=== PATIENT | female | born 1975 | race African-American/Black ===

== ENCOUNTER 2017-11-25 07:55 | Emergency (ER) | payer OTHER ==
[~2017-11-25] VITALS: Ht 172.7 cm; Wt 59.0 kg
--- NOTE | 2017-11-25 08:01 | NUR ---
PATIENT TO ED DT SORETHROAT AND GUMS PAIN X 2 DAYS. PATIENT IS AWAKE AND ALERT. NOT IN DISTRESS. SKIN IS WARM TO TOUCH AND NON DIAPHORETIC. PATIENT IS AFEBRILE. VSS
[2017-11-25 08:02] VITALS: BP 143/91
[2017-11-25] MEDS ORDERED: ACETAMINOPHEN ES 500 MG TABLET ONE (08:12)
[2017-11-25] MEDS ORDERED: ACETAMINOPHEN ES 500 MG TABLET PO ONE (08:30)
== END 2017-11-25 08:15 | disposition home or self-care (01) ==
LOC: ER 08:02
DX: J02.9 Acute pharyngitis, unspecified (principal); Z88.2 Allergy status to sulfonamides; Z88.8 Allergy status to other drugs, medicaments and biological substances; Z98.890 Other specified postprocedural states
CPT/HCPCS: 99283; A4606; Z7610